=== PATIENT | female | born 1980 | race Two or more races ===

== ENCOUNTER → 2025-01-04 | Outpatient (CLI) | payer OTHER, SELFPAY ==
--- NOTE | 2025-01-04 16:23 | XR_ITS ---
Examination: Fingers, left hand third digit 3 views Technique: AP, oblique, lateral views left hand third digit. Exam date and time: January 04, 2025 1626 hours INDICATIONS: Work injury to the hand today with third digit pain. FINDINGS: No acute fracture No dislocation No foreign body IMPRESSION: No acute fracture
== END | disposition home or self-care (01) ==
PROVIDERS: Referring Provider Nurse Practitioner Family; Visit Provider Nurse Practitioner Family
DX: S60.943A Unspecified superficial injury of left middle finger, initial encounter (principal); X58.XXXA Exposure to other specified factors, initial encounter
CPT/HCPCS: 73140

== ENCOUNTER → 2025-04-02 | Outpatient (CLI) | payer OTHER, SELFPAY ==
--- NOTE | 2025-04-02 07:00 | XR_ITS ---
Examination: MRI left hand, without contrast Date and time of exam: April 02, 2025, 0727 hours INDICATIONS: Injury to the hand, third digit January 05, 2025, persistent pain involving the third digit Technique: Multiple axial sagittal and coronal images of the left hand have been obtained with the Siemens high-resolution 1.5 Sofy MRI scanner. Images obtained include T2-weighted fat-suppressed sagittal sections, TR 3500, TE 46, T2 weighted coronal fat suppressed images, TR 3050, TE 84, T2-weighted transverse fat suppressed images, TR 3260, TE 63, proton density transverse images, TR 4720 TE 46, and T1 weighted coronal images, TR 560, TE 13. Findings: Bones of the hand including third digit The flexor and extensor tendons are intact No soft tissue hematoma No abnormal effusion involving the metacarpal phalangeal or interphalangeal joints No cortical bone destruction No foreign body There is thickening of the flexor tendon third digit at the level of the proximal phalanx, tendinitis pattern No annular eileen tear IMPRESSION: No occult fracture or bone contusion marrow edema or avascular necrosis Negative for annular eileen tear Thickening of the flexor tendon third digit at the level of the proximal phalanx, tendinitis pattern
== END | disposition home or self-care (01) ==
PROVIDERS: PCP Family Medicine; Referring Provider Family Medicine; Visit Provider Family Medicine
DX: S60.943D Unspecified superficial injury of left middle finger, subsequent encounter (principal); X58.XXXD Exposure to other specified factors, subsequent encounter; M67.844 Other specified disorders of tendon, left hand
CPT/HCPCS: 73218